=== PATIENT | female | born 1995 | race Caucasian/White ===

== ENCOUNTER 2022-12-25 10:31 | Outpatient (CLI) | payer OTHER, SELFPAY ==
[2022-12-25 12:11] LABS: HIV 1/2 Ab P24 Ag Result Negative (Negative)
[2022-12-25 12:12] LABS: Hepatitis B Surface Antigen Negative (Negative)
[2022-12-25 12:18] LABS: HAV RESULT Negative (Negative); Hepatitis B Core IgM Result Negative (Negative)
[2022-12-25 12:30] LABS: Hepatitis C Virus Antibody Negative (Negative)
[2022-12-25 15:18] LABS: Rapid Plasma Reagin Non-Reactive (NonReactive)
== END 2022-12-25 10:32 | disposition home or self-care (01) ==
LOC: ANHLAB 10:34
PROVIDERS: Visit Provider Student in an Organized Health Care Education/Training Program
DX: Z11.3 Encounter for screening for infections with a predominantly sexual mode of transmission (principal)
CPT/HCPCS: 36415; 80074; 86592; 86695; 86696; 86703; G0432